=== PATIENT | female | born 1980 | race Caucasian/White ===

== ENCOUNTER 2023-08-15 18:46 | Emergency (ER) | payer BC ==
[~2023-08-15] VITALS: Ht 160 cm; Wt 129.3 kg
[2023-08-15] MEDS ORDERED: SODIUM CHLORIDE 0.9% 1,000 ML IV ONE (19:20)
[2023-08-15 19:30] LABS: BASO % 0.3 % (0.0-1.0); EOS % 0.3 % (1.0-4.0); HEMATOCRIT 38.9 % (37.0-47.0); LYMPH # 0.6 10*3/uL (1.3-4.4); MEAN CELL VOLUME 78.7 fl (81.0-99.0); MEAN CORPUSCULAR HGB 23.5 pg (27.0-31.0); MEAN CORPUSCULAR HGB CONC 29.8 g/dl (33.0-37.0); MEAN PLATELET VOLUME 10.8 fl (9.6-12.3); MONO # 0.3 10*3/uL (0.1-1.0); NEUT # 7.8 10*3/uL (2.3-7.9); NEUT % 89.2 % (47.0-73.0); PLATELET COUNT AUTOMATED 321 10*3/uL (130-400); RED BLOOD COUNT 4.94 10*6/uL (4.10-5.10); RED CELL DISTRI WIDTH 15.4 % (0-14.5); WHITE BLOOD COUNT 8.7 10*3/uL (4.8-10.8)
[2023-08-15 19:45] LABS: ACT PARTIAL THROMBO TIME 26.7 SECONDS (20.0-32.1)
[2023-08-15 19:51] LABS: ALKALINE PHOSPHATASE 122 U/L (46-116); BUN 14 mg/dl (9-23); CHLORIDE 105 mmol/L (98-107); POTASSIUM 3.8 mmol/L (3.4-5.1); SGPT/ALT 16 U/L (5-49); TOTAL PROTEIN 7.7 gm/dL (6.0-8.0)
[2023-08-15 19:54] LABS: ETHYL ALCOHOL < 3.0 mg/dl (<3)
[2023-08-15 20:15] LABS: BILIRUBIN Negative (Negative); BLOOD Negative (Negative); CLARITY Clear (Clear); COLOR Yellow (Yellow); GLUCOSE Negative (Negative); KETONE Trace (Negative); LEUKO ESTERASE 1+ (Negative); NITRITE Negative (Negative); PH 5.5 (4.5-8.0); SPECIFIC GRAVITY 1.025 (1.001-1.030)
[2023-08-15 20:21] LABS: URIC ACID CRYSTALS B1
[2023-08-15 20:22] LABS: BACTERIA 2+
[2023-08-15 20:23] LABS: URINE AMPHETAMINES Negative (1000ng/ml); URINE BARBITURATES Negative (200ng/ml); URINE BENZODIAZEPINES Negative (200ng/ml); URINE CANNABINOIDS (THC) Negative (50ng/ml); URINE COCAINE Negative (300ng/ml); URINE METHADONE Negative (300ng/ml); URINE OPIATES Negative (300ng/ml); URINE PHENCYCLIDINE Negative (25ng/ml)
[2023-08-15] MEDS ORDERED: Ceftriaxone Sodium 1 GM/10 ML SYR IV ONE (21:55)
[2023-08-15] MEDS ORDERED: CIPRO500 MG PO (23:13)
== END 2023-08-15 23:20 | disposition home or self-care (01) ==
LOC: ED 18:46
PROVIDERS: Internal Medicine
DX: R00.0 Tachycardia, unspecified (principal); E86.0 Dehydration; N39.0 Urinary tract infection, site not specified; E87.20 Acidosis, unspecified; Z88.8 Allergy status to other drugs, medicaments and biological substances

== ENCOUNTER 2025-01-14 16:10 | Emergency (ER) | payer BC ==
[~2025-01-14] VITALS: Ht 162.5 cm; Wt 105.7 kg
[~2025-01-14 16:10] MED LIST: CIPRO500 MG PO
== END 2025-01-14 18:32 | disposition home or self-care (01) ==
LOC: ED 16:10
DX: S52.612A Displaced fracture of left ulna styloid process, initial encounter for closed fracture (principal); Z88.6 Allergy status to analgesic agent; W19.XXXA Unspecified fall, initial encounter; Y93.89 Activity, other specified; Y92.89 Other specified places as the place of occurrence of the external cause; Y99.8 Other external cause status